=== PATIENT | female | born 1970 | race Caucasian/White ===

== ENCOUNTER 2024-08-24 14:31 | Outpatient (AMB) | payer MEDICAID, SELFPAY ==
[2024-08-24 15:06] VITALS: BP 113/74; PULSE 117; RESP 19; TEMP 36.2; O2SAT 98; BMI 25.9
--- NOTE | 2024-08-24 15:06 | GSCOFFNT_ITS ---
Vital Signs - [facility] 08/24/24 15:06 Height 1.68 m Height Method Stated Weight 73.057 kg Weight Measurement Method Standing Scale BMI 25.9 BP 113/74 Blood Pressure Source Automatic Cuff Blood Pressure Location Left Upper Arm Position Sitting Respiration 19 Pulse 117 H Pulse Source Monitor Temp 97.1 F Temp Source Temporal Artery Scan Pulse Oximetry (%) 98 Oxygen Delivery Method Room Air Med/Allergies Allergies & Medications Allergies No Known Allergies Allergy (Verified 08/24/24 15:07) Medication Reconciliation atorvastatin 40 mg tablet 20 mg PO QDAY 09/09/23 [History Confirmed 08/24/24] cyclobenzaprine 10 mg tablet 10 mg PO HS PRN Muscle Spasm 09/09/23 [History Confirmed 08/24/24] lisinopril 20 mg tablet 20 mg PO QDAY 02/20/24 [History Confirmed 08/24/24] apremilast 30 mg tablet (Otezla) 30 mg PO BID 08/05/24 [History Confirmed 08/24/24] etanercept 25 mg/0.5 mL subcutaneous solution (Enbrel) 25 mg subcut QWEEK 08/05/24 [History Confirmed 08/24/24] tirzepatide (weight loss) 12.5 mg/0.5 mL subcutaneous pen injector (Zepbound) 12.5 mg subcut QWEEK 08/05/24 [History Confirmed 08/24/24] MA Intake Visit Data Collection New Patient or Established: Established Patient (seen at [facility] within 3 years) Seen by Clinical Staff ONLY (RN/MA): No Reason for Visit:: F/U COLONOSCOPY RESULTS Pain Present Currently: No Colorer Hides And Skins Required: No PCP or OBGYN visit in last 3 months: Yes Hx Now: No Do You Feel Safe at Home: Yes Authorities Contacted: N/A Smoking Status Smoking Status: Never smoker Immunization / Flu Flu Vaccine in the Last 12 Months: No Flu Vaccine Exclusion Criteria: Refused by Patient Past Medical History Past Medical History NEUROLOGIC: Negative Neurological Disorders or Seizures CARDIAC: Positive Cardiac Disorders and Hypercholesterolemia; Negative Congestive Heart Failure RESPIRATORY: Negative Chronic Obstructive Pulmonary Disease (COPD) GASTROINTESTINAL: Negative Gastrointestinal Disorders or Hepatitis GENITOURINARY: Negative Genitourinary Disorders or Renal Disease REPRODUCTIVE: Positive Previous Pregnancies (3) MUSCULOSKELETAL: Positive Rheumatoid Arthritis ENDOCRINE: Negative Endocrine Disorders, Diabetes Mellitus Type 1 or Diabetes Mellitus Type 2 HEMATOLOGIC: Negative Blood Disorders OTHER HISTORY: Positive Autoimmune Disease (Psoarsis, RHEUMATOID ARTHRITIS), C hicken Pox, Measles and Mumps; Negative Hospitalization, Falls, Blood Transfusions, Anesthesia Reactions or Cancer Family History FAMILY HISTORY: Positive Family Cardiac Disorders (Mother (M.I., cardiac stents, high cholesterol) Father (triple bypass)), Family Surgery and Family Anesthesia Reaction; Negative Family Psychiatric Problems, Family Gastrointestinal Problems or Family Cancer Social History SMOKING STATUS: Smoking status: Never smoker ALCOHOL: Alcohol Intake: Current HOUSING: Housing: House HPI HPI Narrative 54F who was referred for screening colonoscopy here to discuss results. She reports feeling well overall with no abdominal pain, no symptoms of hemorrhoids. She reports she was prescribed linzess but has not started taking it yet, she states she tends to have a BM daily but sometimes has to strain ROS Review of Systems Systems Reviewed: All systems reviewed, normal except as documented Objective/Exam General General Appearance: alert, cooperative and well groomed Resp Respiratory exam: Absent respiratory distress Results Colonoscopy report reviewed Assessment & Plan Diagnosis / Problem List (1) Encounter to discuss colonoscopy results: Status: Acute Assessment & Plan: 54F s/p screening colonoscopy with findings of diverticulosis and hemorrhoids which are not currently symptomatic, due for next scope in 10 years Office Procedures GNS Level of Care Nursing/Assessment Patient Status: Established Patient Nursing Assessment/Reassesment: Medication Reconciliation, Update PMH in EMR and Vital Signs Coordination of Care: Complex Care and Chronic Disease 1-5, Education Complex Pt/Fam, Consent,records obtained, informed consent, Results/Orders obtained and Staff clarify orders Established Patient Charge Established Patient Point Assignment: 95 Established Patient Point Charge: EP Level 3 (80-115) Patient Portal Questionaires Social History Living Situation History Housing: House Tobacco History Smoking Status: Never smoker Alcohol History Alcohol Intake: Current Domestic Abuse History Do You Feel Safe at Home: Yes Review of Systems Report any current symptoms Only answer those that you have currently: Past Medical History Past Medical History Have you ever been diagnosed with any of the following: Neurological Problems Seizures: No Cardiology Problems Hypercholesterolemia: Yes Congestive Heart Failure: No Respiratory Problems Chronic Obstructive Pulmonary Disease (COPD): No Stomache/Intestinal Problems Hepatitis: No Genital/Urinary Problems Renal Disease: No Reproductive Problems Previous Pregnancies: Yes (3) Musculoskeletal Problems Rheumatoid Arthritis: Yes Endocrine Problems Diabetes Mellitus Type 1: No Diabetes Mellitus Type 2: No Other Problems Hospitalization: No Autoimmune Disease: Yes (Psoarsis, RHEUMATOID ARTHRITIS) Falls: No Blood Transfusions: No Anesthesia Reactions: No Chicken Pox: Yes Measles: Yes Mumps: Yes Cancer: No
== END 2024-08-24 15:13 | disposition home or self-care (01) ==
LOC: HODSRG 14:31
PROVIDERS: PCP Nurse Practitioner Family; Referring Provider Nurse Practitioner Family; Supervising Provider Surgery; Visit Provider Surgery
DX: Z48.815 Encounter for surgical aftercare following surgery on the digestive system (principal); K57.90 Diverticulosis of intestine, part unspecified, without perforation or abscess without bleeding; K64.9 Unspecified hemorrhoids
CPT/HCPCS: 99213; G0463

== ENCOUNTER → 2025-01-18 | Outpatient (CLI) | payer MEDICAID, SELFPAY ==
--- NOTE | 2025-01-18 13:00 | XR_ITS ---
Examination: Breast ultrasound, unilateral, right complete Date and time of exam: January 18, 2025 1322 hours INDICATIONS: Right mammogram March 30, 2024 6 mm nodule 11:00 position right breast Technique: Real-time covarrubias scale ultrasonographic imaging performed of the breast retroareolar and axillary regions FINDINGS: 9:00 cyst 9 x 9 mm 10:00 cyst 4 x 6 mm No solid nodules IMPRESSION: BI-RADS Category 2: Benign findings
--- NOTE | 2025-01-18 13:30 | XR_ITS ---
Examination: Diagnostic digital mammography, unilateral, right Computer aided detection 3-D breast Tomosynthesis, unilateral Date and time of exam: January 18, 2025 1335 hours INDICATIONS: Mammogram March 09, 2024 4 mm focal asymmetry upper outer right breast, mammogram March 30, 2024 6 mm nodule 11:00 position right breast Technique: Nonmagnified MLO, CC views of the right breast have been obtained, reconstructed from 3-D Tomosynthesis images. R2 computer aided detection program utilized for evaluation of suspicious masses and/or abnormal calcifications. 3-D Tomosynthesis images obtained. Findings: Scattered areas of fibroglandular density Focal asymmetry remains outer right breast CC view Impression: BI-RADS category 3: Probably benign findings Recommend bilateral six-month mammography follow-up
== END | disposition home or self-care (01) ==
LOC: CDIM 13:10
PROVIDERS: PCP Nurse Practitioner Family; Referring Provider Nurse Practitioner Family; Visit Provider Nurse Practitioner Family
DX: R92.331 Mammographic heterogeneous density, right breast (principal); N60.01 Solitary cyst of right breast
CPT/HCPCS: 76641; 77061; 77065; G0279

== ENCOUNTER → 2025-04-20 | Outpatient (CLI) | payer MEDICAID, SELFPAY ==
--- NOTE | 2025-04-20 14:30 | XR_ITS ---
Examination: Diagnostic digital mammography, bilateral Computer aided detection 3-D breast Tomosynthesis, bilateral Date and time: April 20, 2025 Compared to mammograms dating to March 08, 2023 INDICATIONS: Focal asymmetry 4 mm upper outer right breast on mammogram March 09, 2024 Technique: Nonmagnified MLO, CC views of the breasts to been obtained, reconstructed from 3-D Tomosynthesis images. R2 computer aided detection program utilized for evaluation of suspicious masses and/or abnormal calcifications. 3-D Tomosynthesis images obtained. Findings: Scattered areas of fibroglandular density. Benign calcifications. No interval suspicious masses, stable focal asymmetry outer right breast Impression: BI-RADS Category 2: Benign findings Return to yearly follow-up mammography.
== END | disposition home or self-care (01) ==
LOC: CDIM 14:03
PROVIDERS: Referring Provider Nurse Practitioner Family; Visit Provider Nurse Practitioner Family
DX: R92.323 Mammographic fibroglandular density, bilateral breasts (principal); R92.1 Mammographic calcification found on diagnostic imaging of breast
CPT/HCPCS: 77062; 77066; G0279